=== PATIENT | female | born 1940 | race Caucasian/White ===

== ENCOUNTER 2020-07-12 19:19 | Inpatient (IN) | payer OTHER ==
[~2020-07-12] VITALS: Ht 157.5 cm; Wt 53.7 kg
[~2020-07-12 19:19] MED LIST: ALDACTONE50 MG PO; ASA81BEC PO; ASPIR 8181 MG PO; CLONIDINE HCL0.1 MG PO; COLACE100 MG PO; ELIQUIS5 MG PO; LASIX 20 MG TAB20 MG PO; NORCO 5-325 TA1 EACH PO; NORVASC10 MG PO; VERAPAMIL E.R240 M1 PO; VERAPAMIL ER120 M1 PO; VERAPAMIL ER180 MG PO; VITAMIN B125000 MCG PO; ZETIA10 MG PO; [UNRECOGNIZED DRUG - REMARK]
[2020-07-12 20:34] VITALS: BP 145/78
[2020-07-12 20:35] VITALS: BP 145/78
[2020-07-12 21:34] VITALS: BP 119/42
--- NOTE | 2020-07-12 21:45 | NUR ---
PT ADMITTED FROM [facility]. PT WAS DRIVING TO [employer] WITH HER . ONCE THEY ARRIVED SHE WENT TO GET HER WALKER OUT OF THE TRUNK AND HAD A SYNCOPAL EPISODE. PT HAS BILATERAL LUNG PE. PT HAS HAD A HX OF DVT L LEG IN 2015. PMH HTN, UT, PE, RHEUMATIC FEVER, HEPATITIS A A CHILD, BORDERLINE DM, L HIP REPAIR. O2 AT 2L, PARAMEDICS INCREASED TO 4L ON TRANSPORT. HEPARIN DRIP AND NOVAK STARTED AT [facility]. LUNGS WHEEZE, DUSKY SKIN TONE. PT STATES SHE IS A DNR, DPOA. PT REPORTS HER HAS HAD CANCER AND AFIBB FOR THE LAST SIX YEARS. PT WAS NOT ABLE TO STATE ALL OF HER HOME MEDICATIONS, REVIEWED LIST FROM [facility] AND PT CONFIRMED. BED ALARM ON. PT REQUESTED FLUIDS AND PROVIDED. PT NPO P MN AND VERBALIZED UNDERSTANDING.
[2020-07-12 22:33] VITALS: BP 123/81
[2020-07-12] MEDS ORDERED: NORVASC5 MG PO (22:39)
[2020-07-12] MEDS ORDERED: METFORMIN HCL500 MG PO (22:40)
[2020-07-12] MEDS ORDERED: SPIRONOLACTONE25 MG PO (22:40)
[2020-07-12] MEDS ORDERED: CARVEDILOL12.5 MG PO (22:40)
[2020-07-12] MEDS ORDERED: PROTONIX40 M2 PO (22:40)
[2020-07-12 23:33] VITALS: BP 139/76
--- NOTE | 2020-07-12 23:44 | NUR ---
TROP INCREASED TO .87 WAS .41, CARDIOLOGY PAGED.
[2020-07-13] VITALS (40 sets, daily range): BP systolic 90–137; BP diastolic 36–76
[2020-07-13 06:30] LABS: HEMOGLOBIN 11.7 gm/dL (12.0-15.0); MCH 26.4 pg (26.0-34.0); MCHC 32.6 g/dL (28.0-37.0); MCV 80.8 fL (80.0-100.0); RBC 4.45 mil/uL (4.20-5.00); RDW 16.5 % (10.5-14.5); WBC 9.4 thou/uL (4.0-11.0)
[2020-07-13 06:55] LABS: ALBUMIN 3.1 g/dL (3.4-5.0); CALCIUM 9.6 mg/dL (8.5-10.1); CREATININE 0.9 mg/dL (0.6-1.0); POTASSIUM 3.8 mmol/L (3.5-5.1); TOTAL BILIRUBIN 0.6 mg/dL (0.2-1.0); TOTAL PROTEIN 6.8 g/dL (6.4-8.2)
--- NOTE | 2020-07-13 12:02 | 2DMMODE ---
[facility] [place] [address] 2 D/M-MODE ECHOCARDIOGRAM Name: DIANA RAVI Room #: 239-P ADM IN M.R.#: [id number] Admission: 07/12/20 Attend Phys: Bradley Johnson MD Discharge: Date of : 44 Report #: [id number] THIS REPORT FOR: cc: Kartik Huffman,Kartik Nguyen,José Miguel Lewis MD ~ APPROVED REPORT Study performed: 07/13/2020 07:39:08 EXAM: Comprehensive 2D, Doppler, and color-flow Echocardiogram Patient Location: ICU Room #: 239 Status: on-call BSA: 2.21 HR: 82 bpm BP: 117/72 mmHg Rhythm: NSR Other Information Study Quality: Adequate Indications CAD Hypertension/HDD Bilateral PE's 2D Dimensions RVDd: 39.88 mm IVSd: 11.91 (7-11mm) LVOT Diam: 19.95 (18-24mm) LVDd: 29.27 mm PWd: 11.25 (7-11mm) LVDs: 20.10 (25-40mm) Aortic Root: 26.05 mm IVC: 23.00 mm Volumes Left Atrial Volume (Systole) Single Plane 4CH: 12.15 mL Single Plane 2CH: 16.96 mL LA ESV Index: 7.00 mL/m2 Aortic Valve AoV Peak Nolberto.: 1.20 m/s AO Peak Gr.: 5.72 mmHg LVOT Max P.53 mmHg LVOT Max V: 1.18 m/s [facility] [address] [place] [address] 2 D/M-MODE ECHOCARDIOGRAM Name: DIANA RAVI Room #: 239-P [facility] IN .RAlma#: [id number] Admission: 07/12/20 Attend Phys: Bradley Johnson, Discharge: Date of : 44 Report #: [id number] ELIZABETH Vmax: 3.07 cm2 Mitral Valve E/A Ratio: 0.6 MV Decel. Time: 239.54 ms MV E Max Nolberto.: 0.51 m/s MV A Nolberto.: 0.85 m/s MV PHT: 69.47 ms IVRT: 179.93 ms Pulmonary Valve PV Peak Nolberto.: 0.69 m/s PV Peak Gr.: 1.88 mmHg Pulmonary Vein P Vein S: 0.25 m/s P Vein A: 0.17 m/s P Vein D: 0.49 m/s P Vein A Dur.: 148.8 msec P Vein S/D Ratio: 0.51 Tricuspid Valve TR Peak Nolberto.: 3.47 m/s RAP Estimate: 15.00 mmHg TR Peak Gr.: 48.16 mmHg PA Pressure: 62.00 mmHg Left Ventricle The left ventricle is normal size. There is normal LV segmental wall motion. Mild concentric left ventricular hypertrophy. The left ventricular systolic function is normal. The left ventricular ejection fraction is within the normal range. LVEF is 60-65%. Mild diastolic dysfunction is present (impaired relaxation pattern). Right Ventricle Right ventricle is dilated. Right ventricle is mildly hypokinetic. Atria The left atrium size is normal. Right atrium is dilated. Aortic Valve Mild aortic valve sclerosis. No aortic regurgitation is present. There is no aortic valvular stenosis. Mitral Valve The mitral valve is normal in structure. There is no mitral valve regurgitation noted. No evidence of mitral valve stenosis. [facility] [place] [address] 2 D/M-MODE ECHOCARDIOGRAM Name: DIANA RAVI Room #: 239-P [facility] IN ..#: [id number] Admission: 07/12/20 Attend Phys: Bradley Johnson, Discharge: Date of : 44 Report #: [id number] Tricuspid Valve The tricuspid valve is normal in structure. Mild to moderate tricuspid regurgitation. PAP is estimated at 55 mmHg. Pulmonic Valve Pulmonic valve is not well visualized. Trace to mild pulmonic regurgitation. Great Vessels The aortic root is normal in size. IVC is dilated and collapses <50% with inspiration. Pericardium There is no pericardial effusion. <Conclusion> The left ventricle is normal size. Mild concentric left ventricular hypertrophy. The left ventricular systolic function is normal. Mild diastolic dysfunction is present (impaired relaxation pattern). Right ventricle is dilated. Right ventricle is mildly hypokinetic. Right atrium is dilated. Mild aortic valve sclerosis. There is no mitral valve regurgitation noted. Mild to moderate tricuspid regurgitation. PAP is estimated at 55 mmHg. <ELECTRONICALLY SIGNED> By: José Miguel Villaseñor MD 07/13/201201 01 01 José Miguel Villaseñor MD /INF
--- NOTE | 2020-07-13 18:16 | NUR ---
PT CONTINUES TO PROGRESS. DOWN TO 2L NC. HEPARIN GTT MAINTAINED VIA PROTOCOL. EMBOLECTOMY AND IVC FILTER PLACED TODAY FOR PE. TRANSFER ORDERS RECIEVED, PENDING ON CCU AVAILABILITY.
--- NOTE | 2020-07-13 23:08 | NUR ---
PT ALERT AND ORIENTED X4. VSS 99.1. PT PLEASANT AND COOPERATIVE. LUNGS CTA AND UNLABORED ON RA. PULSES PALPABLE. NO BLEEDING NOTED AT RIGHT GROIN SITE. DRESSING IS DRY AND INTACT. SMALL BRUISE NOTED. NO HEMATOMA. PT DENIED PAIN. HEPARIN GTT INFUSING R AC. TITRATING ORDERED. BED DOWN , ALARM ON, CALL LIGHT IN REACH. NO S/S DISTRESS. WILL CONTINUE TO MONITOR PT FOR CHANGES.
[2020-07-14] VITALS (55 sets, daily range): BP systolic 105–155; BP diastolic 32–75
--- NOTE | 2020-07-14 07:44 | NUR ---
PT PROGRESSING TOWARDS D/C GOALS. VSS AFEBRILE. T MAX 99.1 . LUNGS REMAIN CLEAR AND UNLABORED ON 02 2LNC. SATS WNL. HEPARIN GTT TITRATED PER PROTOCOL AND ADJUSTED FOR TODAYS CORRECT WT . PHARMACY NOTIFIED. RIGHT GROIN DRESSING REMAINS DRY AND INTACT. NO BLEEDING NOTED. NO HEMATOMA. SMALL BRUISING NOTED.NO C/O PAIN TONIGHT. NO SOA OR S/S DISTRESS. PT SLEPT WELL MOST OF NIGHT.
--- NOTE | 2020-07-14 08:13 | HC ---
[facility] [address] [place] [address] CONSULTATION Name: DIANA RAVI Room #: 242-[facility] IN M.R.#: [id number] Admission: 07/12/20 Attend Phys: Bradley Johnson MD Discharge: Date of : 44 Report #: [id number] THIS REPORT FOR: cc: Kartik Huffman Vincent R. DO Park, Jin S. MD ~ DOC #: [id number] José Miguel Villaseñor MD DATE OF SERVICE: 07/13/2020 CARDIOLOGY CONSULTATION INDICATION: Chest pain. HISTORY OF PRESENT ILLNESS: This is a pleasant 79-year-old female with a previous history of PE, CAD, hypertension, gait instability, presenting with shortness of breath and chest pains. She had [place] [employer] and was walking in a driveway with her walker. She proceeded to pass out, does not remember any details prior to the event. When she regained consciousness, she developed chest discomfort and shortness of breath. She was evaluated in the ER at [facility], found to have bilateral PEs and transferred to [facility]. Presently without any chest pain or shortness of breath. There is no history of fever, chills, or nausea. PAST MEDICAL HISTORY: She had a PE in 2014. At that time, she was told she had an VA, but did not receive any stents. Probably related to the RV strain. History of hypertension, hypercholesterolemia. ALLERGIES: LISINOPRIL. MEDICATIONS: At home include amlodipine, aspirin, spironolactone. SOCIAL HISTORY: Denies any tobacco use. FAMILY HISTORY: Negative for premature CAD. REVIEW OF SYSTEMS: A full 10-point review of systems performed. Only the pertinent positives and negatives are described in the HPI. PHYSICAL EXAMINATION: VITAL SIGNS: Blood pressure is 120/70, heart rate is 80 beats per minute. GENERAL: An elderly appearing female in no acute distress. HEENT: Normocephalic and atraumatic. Oral mucosa moist. NECK: Supple. LUNGS: Clear to auscultation. [facility] [address] [place] [address] CONSULTATION Name: DIANA RAVI Room #: 242-P [facility] IN [facility].#: [id number] Admission: 07/12/20 Attend Phys: Bradley Johnson MD Discharge: Date of : 44 Report #: [id number] CARDIAC: Regular rate and rhythm, S1, S2 positive. ABDOMEN: Soft, nontender. EXTREMITIES: No cyanosis, no edema. ECG reveals sinus rhythm, Q-waves inferiorly, T-wave inversions in the precordial leads. LABORATORY DATA: Hemoglobin is 11.7. Troponin is 0.87. ASSESSMENT AND PLAN: 1. Chest pain syndrome with minimal troponin elevation in the setting of bilateral pulmonary emboli. She is not having any active chest pain and the ECG does not show any acute ST segment changes. It is quite possible that the troponin elevation is related to RV strain for the pulmonary emboli. We will eventually need an ischemic evaluation once her condition stabilizes. 2. Pulmonary emboli/bilateral, plan for thrombectomy with IR. Continue on heparin. 3. Hypertension, hold on blood pressure medications. José Miguel Villaseñor MD JP/CHARLIE <ELECTRONICALLY SIGNED> By: José Miguel Villaseñor MD 07/14/20 0813 0859 [id number] José Miguel Villaseñor MD /nt
--- NOTE | 2020-07-14 18:07 | NUR ---
RN ASSUMED PT'S CARE AT 0700AN, PT IS A&OX3, PT HAD IVC FILTER DONE ANDEMBOLECTOMY DONE AT 07/13/20, PT IS OFF O2 AT ROOM AIR TO KEEP O2SAT >92%, PT HAS SOB WITH ACIVITIES, PT'S BP AND HR ARE STABLE, PT IS ON IV HEPARIN DRIP PROTOCOL , PT'S HEPARIN IS RUNNING 14 UNITS/KG/HR, NEXT PTT CHECK IS 2200PM TODAY, PT DOES NOT HAVE S/S OF BLEEDING AT THIS TIME, PT'S R DRION ACCESS DRESSING IS CDI. PT DENIES PAIN AT THIS TIME.
--- NOTE | 2020-07-15 02:47 | NUR ---
PT DENIED ANY PAIN DURING THE NIGHT. NO ACUTE SOA NOTED. SPO2 90% ON RA. PLACED PT ON 2L NC TO KEEP SPO2 >92% DURING THE NIGHT. PT REMAINS ON HEPARIN GTT; TITRATED BASED ON APTT RESULTS, PER PROTOCOL. RIGHT GROIN SITE C/D/I. VSS. AFEBRILE. PROGRESSING TOWARD POC GOALS. WILL CONTINUE TO MONITOR.
[2020-07-15 04:53] VITALS: BP 121/50
[2020-07-15 05:13] LABS: MCH 26.4 pg (26.0-34.0); MCHC 32.6 g/dL (28.0-37.0); MCV 81.1 fL (80.0-100.0); RBC 3.33 mil/uL (4.20-5.00); RDW 16.4 % (10.5-14.5); WBC 7.7 thou/uL (4.0-11.0)
[2020-07-15 05:21] LABS: HEMOGLOBIN 8.8 gm/dL (12.0-15.0)
--- NOTE | 2020-07-15 06:22 | NUR ---
APPT THERAPEUTIC. NO CHANGE TO HEPARIN GTT RATE.
--- NOTE | 2020-07-15 06:23 | NUR ---
APTT THERAPEUTIC. NO CHANGE IN HEPARIN GTT AT THIS TIME.
[2020-07-15 08:06] VITALS: BP 120/48
--- NOTE | 2020-07-15 08:25 | EKG ---
[facility] [employer] [place] [address] ELECTROCARDIOGRAM REPORT Name: DIANA RAVI Room #: 242-[facility] IN M.R.#: [id number] Admission: 07/12/20 Attend Phys: Bradley Johnson MD Discharge: Date of : 44 Report #: [id number] [facility] Test Date: 2020-07-12 Test Time: 23:20:51 Pat Name: DIANA RAVI Department: Room: 242 Gender: F Social Work Assistant: UNKNOWN : 1940 Requested By: Fiorella Espana Order Number: [id number] MD: Jose Parks Measurements Intervals [place] Rate: 95 P: 54 [place]: 161 QRS: -80 QRSD: 90 T: 20 QT: 331 QTc: 416 Interpretive Statements Sinus rhythm LAD, consider left anterior fascicular block Abnormal R-wave progression, late transition Nonspecific T abnormalities, anterior leads Cannot rule out inferior infarct, age undetermined No previous ECG available for comparison Electronically Signed On 07-15-2020 8:25:02 CDT by Jose Parks [email or web address] <ELECTRONICALLY SIGNED> By: Jose Parks MD, [facility] 07/15/20 0825 2320 2320 Jose Parks MD, [facility] /EPI
--- NOTE | 2020-07-15 08:29 | EKG ---
[place] [address] [facility] [place] [address] ELECTROCARDIOGRAM REPORT Name: DIANA RAVI Room #: 242-[facility] IN M.R.#: [id number] Admission: 07/12/20 Attend Phys: Bradley Johnson MD Discharge: Date of : 44 Report #: [id number] [facility] Test Date: 2020-07-13 Test Time: 09:46:05 Pat Name: DIANA RAVI Department: Room: 242 Gender: F Clinical Training Specialist: GAY : 1940 Requested By: José Miguel Villaseñor Order Number: [id number] MD: Jose Parks Measurements Intervals [place] Rate: 81 P: 51 [place]: 164 QRS: -76 QRSD: 86 T: 5 QT: 392 QTc: 455 Interpretive Statements Sinus rhythm Abnormal R-wave progression, late transition Inferior infarct, old Compared to ECG 07/12/2020 23:20:51 No significant change was found Electronically Signed On 07-15-2020 8:29:38 CDT by Jose Parks [email or web address] <ELECTRONICALLY SIGNED> By: Jose Parks MD, [facility] 07/15/20 0829 5 5 Jose Parks MD, [facility] /EPI
--- NOTE | 2020-07-15 09:30 | NUR ---
RD consult received, reason not specified. Admit with bilateral PE, hx DVT. Pt on reuglar diet eating 60-70% of meals. No wt loss reported. BMI is 21.5. Will be transferring out ICU today. Low nutrition risk
--- NOTE | 2020-07-15 09:50 | NUR ---
chart review. unable to visit with pt, rt resting with eyes closed. from [facility] . on heparin gtt. was on eliquise for pe 6months prior to hospital. noted she was driving and has walker. lives home with her . will cont following as needed for dc needs.
[2020-07-15 12:38] VITALS: BP 120/58
--- NOTE | 2020-07-15 16:36 | NUR ---
ASSUMED CARE AT 0700. HEPARIN GTT DISCONTINUED, ELIQUIS STARTED. ROOM AIR. NOVAK REMOVED. PATIENT PROGRESSING TOWARDS GOALS OF CARE. WILL CONTINUE TO MONITOR.
[2020-07-15 17:24] VITALS: BP 117/72
[2020-07-15 19:59] VITALS: BP 126/52
[2020-07-16] VITALS: BP 131/46
[2020-07-16 04:00] VITALS: BP 122/50
[2020-07-16 05:13] LABS: HEMATOCRIT 27.3 % (37.0-47.0); HEMOGLOBIN 8.8 gm/dL (12.0-15.0); MCH 26.6 pg (26.0-34.0); MCHC 32.4 g/dL (28.0-37.0); MCV 82.3 fL (80.0-100.0); RBC 3.32 mil/uL (4.20-5.00); RDW 16.8 % (10.5-14.5); WBC 7.1 thou/uL (4.0-11.0)
--- NOTE | 2020-07-16 05:47 | NUR ---
Patient progressing towards outcome goals. Rhythm and blood pressures stable. Did need supplemental oxygen at 2L while sleeping as sats dropping to upper 80's. Back on room air when awake. Denies pain. Right groin stable. Up x 1 assist to BSC. High fall risks, fall precautions in place. Uses call light appropriately for needs.
[2020-07-16 08:01] VITALS: BP 131/55
--- NOTE | 2020-07-16 09:48 | NUR ---
discussed during am round, possible dc home today with dick wright , she did need o2, will get rt to do rest and exercise prior to dc home, have 1 tank from [facility] if o2 is needed for dc home.
[2020-07-16 11:47] VITALS: BP 131/55
[2020-07-16 12:00] VITALS: BP 112/40
[2020-07-16] MEDS ORDERED: ELIQUIS5 MG PER TUBE (12:03)
--- NOTE | 2020-07-16 13:14 | NUR ---
on-going assessment: CM REVIEWED CHART. PT HAS ORDERS TO DISCHARGE HOME TODAY WITH HOME HEALTH. HH HAS ALREADY BEEN ARRANGED WITH [facility]. CM NOTIFIED HH [facility] WHO IS AWARE OF DISCHARGE AND WILL PRINT THE ORDERS. PT WAS ABLE TO BE WEANED OFF OF OXYGEN PRIOR TO DISCHARGE AND DOES NOT REQUIRE IT FOR HOME. PT REPORTS HAVING A RIDE HOME. CASE CLOSED.
--- NOTE | 2020-07-16 14:52 | NUR ---
ASSUMED CARE AT 0700. PATIENT WAS EVALUATED FOR DISCHARGE BY PT AND RT. CLEARED BY RT FOR NO HOME OXYGEN. DISCHARGE ORDERS PLACED. IV REMOVED. DISCHARGE PACKET REVIEWED WITH PATIENT, INCLUDING NEW MEDICATION DOSING AND FOLLOW-UP APPOINTMENTS. PATIENT ESCORTED OUT TO [facility] VIA WHEELCHAIR. BELONGINGS INCLUDING BAG OF CLOTHING AND MEDICATION SAMPLES SENT HOME WITH PATIENT. PATIENT DISCHARGED HOME WITH HOME HEALTH. ESCORTED OUT AT 1440.
== END 2020-07-16 15:06 | disposition home health service (06) | DRG 163 ==
LOC: ICU 19:19
PROVIDERS: Hospitalist; Nurse Practitioner Family; ADMIT Internal Medicine; ATTEND Internal Medicine
PROC: 02CR3ZZ Extirpation of Matter from Left Pulmonary Artery, Percutaneous Approach (ICD-10-PCS; principal; 2020-07-13)
PROC: 06H03DZ Insertion of Intraluminal Device into Inferior Vena Cava, Percutaneous Approach (ICD-10-PCS; principal; 2020-07-13)
PROC: B2111ZZ Fluoroscopy of Multiple Coronary Arteries using Low Osmolar Contrast (ICD-10-PCS; principal; 2020-07-13)
PROC: 4A023N6 Measurement of Cardiac Sampling and Pressure, Right Heart, Percutaneous Approach (ICD-10-PCS; principal; 2020-07-13)
PROC: B31S1ZZ Fluoroscopy of Right Pulmonary Artery using Low Osmolar Contrast (ICD-10-PCS; principal; 2020-07-13)
PROC: B31T1ZZ Fluoroscopy of Left Pulmonary Artery using Low Osmolar Contrast (ICD-10-PCS; principal; 2020-07-13)
PROC: 02CQ3ZZ Extirpation of Matter from Right Pulmonary Artery, Percutaneous Approach (ICD-10-PCS; principal; 2020-07-13)
PROC: 02CP3ZZ Extirpation of Matter from Pulmonary Trunk, Percutaneous Approach (ICD-10-PCS; principal; 2020-07-13)
DX: I26.99 Other pulmonary embolism without acute cor pulmonale (principal); J96.01 Acute respiratory failure with hypoxia; N39.0 Urinary tract infection, site not specified; I10 Essential (primary) hypertension; E78.00 Pure hypercholesterolemia, unspecified; R73.03 Prediabetes; I25.10 Atherosclerotic heart disease of native coronary artery without angina pectoris; K75.9 Inflammatory liver disease, unspecified; Z66 Do not resuscitate; E83.52 Hypercalcemia; R91.1 Solitary pulmonary nodule; Z88.8 Allergy status to other drugs, medicaments and biological substances; Z86.718 Personal history of other venous thrombosis and embolism; I25.2 Old myocardial infarction; Z90.49 Acquired absence of other specified parts of digestive tract
CPT/HCPCS: 10078; 10203